=== PATIENT | female | born 1935 | race Caucasian/White ===

== ENCOUNTER 2017-01-10 10:44 | Day surgery (SDC) | payer MEDICARE ==
[~2017-01-10] VITALS: Ht 154.9 cm; Wt 52.3 kg
[~2017-01-10 10:44] MED LIST: 0.9% Sodium Chloride 1,000 ML IV SCH; ASPI-973 PO; CALC600T12 PO; CHLS378PW PO; CHOL400D4 PO; LISI10TA PO; LOPE2CAP PO; MAGN100T5 PO; Sodium Chloride LOK Flush 10 mL Syringe IV PRN; VITA100T4 PO; fentaNYL-PF 50 mCg/mL 2 mL Inj IVPUSH PRN
[2017-01-10 11:10] VITALS: BP 134/86; PULSE 72; RESP 14; O2SAT 96
[2017-01-10] MEDS ORDERED: PSYL660P17 PO (11:15)
[2017-01-10] MEDS ORDERED: MELA1TAB10 PO (11:15)
[2017-01-10 13:50] VITALS: BP 134/84; PULSE 67; RESP 16; O2SAT 97
[2017-01-10 14:00] VITALS: BP 124/74; PULSE 58; RESP 12; O2SAT 94
[2017-01-10 14:10] VITALS: BP 121/74; PULSE 62; RESP 14; O2SAT 94
[2017-01-10 14:22] VITALS: BP 141/77; PULSE 70; RESP 14; O2SAT 97
--- NOTE | 2017-01-10 15:33 | ENDO ---
[address] [address] ENDOSCOPY PROCEDURE PATIENT: MUNIRA HART : 1935 MR#: [id number] ADMIT: 01/10/2017 JOB ID: [id number] DATE: 01/10/2017 PRIMARY PROVIDER: Munira Spring MD PROCEDURE: Colonoscopy with cold snare polypectomy. INDICATIONS: An 81-year-old female with a personal history of adenomatous colon polyps. She had one polyp that seemed to be left behind at her last exam in December of [address] Stone. Repeat surveillance was organized for today. EQUIPMENT: PCF H 180 AL. SEDATION: 1. 4 mg Versed. 2. 100 mcg fentanyl. COMPLICATIONS: None identified. BOWEL PREPARATION: Fair, adequate examination. PROCEDURAL INFORMATION: After the risks and benefits were explained, written and verbal informed consent was obtained. The patient was brought into the endoscopy suite and placed into the left lateral decubitus position. Sedation was achieved as above. A digital rectal examination accomplished. No significant pathology appreciated. The scope was introduced into the rectum and advanced under direct visualization to the cecum as identified by the appendiceal orifice and the ileocecal valve. The scope was slowly withdrawn to carefully examine the mucosa for any defects or lesions. Multiple direct views were made through the dentate line for exclusion of pathology. The colon was decompressed. The scope removed from the patient who tolerated the procedure well. FINDINGS: Near the hepatic flexure in the ascending colon was a small perhaps 4 to maybe 5 mm sessile polyp removed with a cold snare. I did not see any other pathology. In and around the hepatic flexure. No other significant pathology was identified throughout the remainder of the colon. ENDOSCOPIC DIAGNOSES: Diminutive hepatic flexure polyp. RECOMMENDATIONS: 1. Await histopathology. 2. Surveillance colonoscopy is not required in that that would place the patient at age 86. 3. Followup GI on a p.r.n. basis.
--- NOTE | 2017-01-12 15:42 | PATH ---
SURGICAL PATHOLOGY Attending Physician:Mery Correia CASE STATUS: Signed Out PATIENT NAME: SCOTT HART PID: [id number] : 1935 DATE COLLECTED:01/10/2017 00:00 SPECIMEN: Colon, Biopsy CLINICAL HISTORY: 1. HEPATIC FLEXURE POLYP FINAL DIAGNOSIS: 1.HEPATIC FLEXURE POLYP: TUBULAR ADENOMA. ICD10 CODE D12.3 GROSS DESCRIPTION: The specimen is received in one formalin filled container labeled with the patient's name, sublabeled "hepatic flexure" and consists of a 0.3 x 0.2 x 0.2 CM portion of tissue which is entirely submitted in one cassette. 01/11/2017 DAC MICRO DESCRIPTION: See diagnosis. ICD-9 CODES: CPT CODES: 1: 94125 Electronically Signed Out Harman Cantrell MD [facility] Pathology [facility] [address], [place] [address] Technical component performed at [facility], [address] [place] [address] Ave[address], [place], [address]
== END 2017-01-10 23:59 | disposition home or self-care (01) ==
LOC: END 10:44
PROVIDERS: ATTEND Internal Medicine Gastroenterology
DX: Z12.11 Encounter for screening for malignant neoplasm of colon (principal); Z86.010 Personal history of colon polyps; D12.3 Benign neoplasm of transverse colon; R00.2 Palpitations; I10 Essential (primary) hypertension; M19.90 Unspecified osteoarthritis, unspecified site; Z79.82 Long term (current) use of aspirin
CPT/HCPCS: 45385; 99153; G0500; J7030